=== PATIENT | female | born 1985 | race Caucasian/White ===

== ENCOUNTER 2019-02-26 22:58 | Inpatient (IN) | payer OTHER ==
[2019-02-26] MEDS: Lactated Ringer's 1,000 ML IV SCH (23:30)
[2019-02-26] MEDS ORDERED: Butorphanol Tartrate 1 MG/ML VIAL SLOW IVP PRN (23:38)
[2019-02-26] MEDS ORDERED: Ondansetron PF 4 MG/2 ML Vial IVP PRN (23:38)
[2019-02-26] MEDS ORDERED: hydrALAZINE 20 MG/ML VIAL SLOW IVP PRN (23:38)
[2019-02-26] MEDS ORDERED: Acetaminophen 500 MG TAB PO PRN (23:38)
[2019-02-26] MEDS ORDERED: Promethazine HCl 25 MG/ML VIAL IM PRN (23:38)
[2019-02-26] MEDS: Vancomycin HCl 1 GM in Premix Bag 1 BAG IVPB SCH (23:40)
--- NOTE | 2019-02-26 23:45 | PDOC.LDHP ---
Labor and Delivery H&P Chief complaint: contractions HPI: Multip here with 2 hours of increasing contractions. No LOF. Good movement. H/O fast labors with prior pregnancies. Was 4cm in the office earlier today. Current gestational age (weeks): 41 Due date: 02/16/19 Dating criteria: last menstrual period, first trimester ultrasound Grav: 4 Para: 3 OB History Details: Late transfer of care to [facility]. No complications. Rh negative status - given Rhogam at 28 weeks. Current complications: other (Post-dates) Abnormal US findings: No Current medications: pre-nitza vitamins Previous surgical history: none Allergies/Adverse Reactions: Allergies Allergy/AdvReac Type Severity Reaction Status Date / Time Penicillins Allergy Verified 02/26/19 23:36 Social history: none - Physical Exam Vital signs reviewed and normal: yes General: NAD, resting, breathing through contractions Heart: RRR Lungs: CTAB Abdomen: gravid Extremeties: no edema FHT: category 1 [place] contractions every: 8 minutes - Vaginal Exam cm dilated: 7 Effacement: 90% Station: -1 - OB Labs Blood type: O RH: negative Antibody Screen: negative HIV: negative RPR: negative HEPSAg: negative 1 hour GCT: negative GBS: positive Urine drug screen: not done Rubella: immune - Assessment L&D Assessment: term patient in labor - Plan Plan: admit to L&D, GBS antibiotic prophylaxis (Vancomycin given penicillin allergy), informed consent obtained
[2019-02-26 23:51] VITALS: BMI 29.9
[2019-02-27 00:10] LABS: Hemoglobin 11.2 g/dL (12.0-16.0); Mean Corpuscular HGB CONC 34.8 g/dL (32.0-36.0); Mean Corpuscular Hemoglobin 30.2 pg (27.0-31.0); Mean Corpuscular Volume 86.5 fL (78.0-98.0); Mean Platelet Volume 7.5 fL (7.4-10.4); Platelet Count 194 thou/uL (130-400); RBC Distribution Width 12.8 % (11.5-14.5); Red Blood Cell (RBC) Count 3.73 mill/uL (4.20-5.40); White Blood Cell (WBC) Count 7.7 thou/uL (4.8-10.8)
[2019-02-27 00:49] LABS: Syphilis Antibody Nonreactive (Nonreactive); Syphilis Antibody Index 0.05 S/CO (<1.00 Non-Reactive)
[2019-02-27 01:05] LABS: HBSAg Index 0.26 S/CO (0-0.99); Hep B Surf Ag Non-Reactive S/CO (NonReactive)
[2019-02-27] MEDS ORDERED: Lidocaine 1% (PF) 30 ML VIAL ONE (10:12)
[2019-02-27] MEDS ORDERED: NS / Oxytocin 40 units/1000ml 1,000 ML ONE ×2 (10:12→18:46)
[2019-02-27] MEDS: Vancomycin HCl 1 GM in Premix Bag 1 BAG IVPB SCH (11:41)
[2019-02-27] MEDS: Lactated Ringer's 1,000 ML IV SCH (11:41)
--- NOTE | 2019-02-27 12:42 | PDOC.EVN ---
Event Note - Event Note Event Note: Little progress overnight. Advanced cervical dilation at 41+ weeks. /. CTX only every 10-12 minutes. AROM with clear fluid. Category I strip following AROM. Hopefully that will move labor along. Getting vancomycin for GBS with PCN allergy. Continue expectant management. May need to augment with pitocin if no increase in CTX after AROM.
[2019-02-27] MEDS ORDERED: Fentanyl 4 mcg/Bup 0.1% Cadd 100 ML ONE (13:21)
[2019-02-27] MEDS ORDERED: Fentanyl 100 MCG/2 ML VIAL ONE (13:36)
[2019-02-27] MEDS ORDERED: Naloxone HCl 0.4 mg/ml Vial IVP PRN ×2 (13:58)
[2019-02-27] MEDS ORDERED: diphenhydrAMINE 50 MG/ML VIAL IVP PRN (13:58)
[2019-02-27] MEDS ORDERED: Promethazine HCl 25 MG/ML VIAL IM PRN (13:58)
[2019-02-27] MEDS ORDERED: Acetaminophen 325 MG TAB PO PRN (13:58)
[2019-02-27] MEDS ORDERED: Ondansetron PF 4 MG/2 ML Vial IVP PRN (13:58)
[2019-02-27] MEDS ORDERED: Lactated Ringer's 500 ML IV PRN (13:58)
[2019-02-27] MEDS ORDERED: ePHEDrine/0.9% NaCl/PF SYRINGE 50 mg/10 ml SLOW IVP PRN (13:58)
[2019-02-27] MEDS ORDERED: Fentanyl 4 mcg/Bupivacaine 0.1% Cassette 100 ML EPIDURAL SCH (14:00)
[2019-02-27] MEDS ORDERED: Communication Order-Pharmacy FS SCH (14:00)
--- NOTE | 2019-02-27 15:50 | PDOC.OPDEL ---
OB Operative/Delivery Note Delivery Dr/Surgeon: Bertram Pre-Delivery Diagnosis: active labor Procedure/Post Delivery Dx: spontaneous vaginal delivery Weeks gestation: 41 Anesthesia: epidural - Findings A Sex: female - 1 min: 9 - 5 min: 9 - Additional Findings/Plan Placenta delivered: spontaneous Repaired Obstetrical Laceration: 1st degree (Repaired with 2.0 vicryl suture in standard running fashion. Excellent hemostasis.) Post delivery plan: routine recovery
[2019-02-27] MEDS ORDERED: Benzocaine-Menthol 82.5 ML CAN TOP PRN (20:27)
[2019-02-27] MEDS ORDERED: hydrALAZINE 20 MG/ML VIAL SLOW IVP PRN (20:27)
[2019-02-27] MEDS ORDERED: NS / Oxytocin 40 units/1000ml 1,000 ML IV SCH (20:27)
[2019-02-27] MEDS ORDERED: Bisacodyl 10 MG SUPP PR PRN (20:27)
[2019-02-27] MEDS ORDERED: Milk Of Magnesia 30 ML UDCUP PO PRN (20:27)
[2019-02-27] MEDS ORDERED: FLU VACC QS2019-20(6MOS UP)/PF 60 MCG/0.5 ML SYRINGE IM ONE (21:00)
[2019-02-27] MEDS ORDERED: Sodium Chloride 0.9% 10 ML ONE (21:02)
[2019-02-27] MEDS: Docusate Calcium (SURFAK) 240 MG CAP PO SCH (21:15)
[2019-02-27] MEDS: Ibuprofen 800 MG TAB PO SCH (21:15)
[2019-02-27] MEDS: HYDROcodone/Acetaminophen 5/325 mg Tablet PO PRN (23:18)
[2019-02-28] MEDS: HYDROcodone/Acetaminophen 5/325 mg Tablet PO PRN ×4 (03:21→20:23)
[2019-02-28] MEDS: Ibuprofen 800 MG TAB PO SCH ×3 (05:52→21:39)
[2019-02-28] MEDS ORDERED: Adacel (T-DAP) 0.5 ML SYRINGE IM ONE (09:00)
[2019-02-28] MEDS: Ferrous Sulfate 325 MG TAB PO SCH ×2 (09:44→18:36)
[2019-02-28] MEDS: Docusate Calcium (SURFAK) 240 MG CAP PO SCH ×2 (09:53→21:39)
[2019-03-01] MEDS: HYDROcodone/Acetaminophen 5/325 mg Tablet PO PRN ×2 (00:38→10:58)
[2019-03-01] MEDS: Ibuprofen 800 MG TAB PO SCH (06:15)
[2019-03-01 08:03] VITALS: BP 97/61; TEMP 98.2
[2019-03-01] MEDS: Ferrous Sulfate 325 MG TAB PO SCH (08:22)
[2019-03-01] MEDS: Docusate Calcium (SURFAK) 240 MG CAP PO SCH (08:22)
--- NOTE | 2019-03-01 10:17 | PDOC.PP ---
Post Progress Note Post Day #: 1 Subjective: Doing well. Still quite tired from labor. Wants to stay another day. PO intake tolerated: yes Flatus: yes Ambulation: yes Vital Signs (12 hours) Temp Pulse Resp BP Pulse Ox 03/01/19 07:20 98.2 F 78 12 97/61 97 Weight Weight 169 lb - Physical Examination General: NAD Cardiovascular: no m/r/g, RRR Respiratory: clear to auscultation bilaterally, non-labored breathing Abdominal: + bowel sounds, lochia, no distention, appropriately TTP Result Diagrams: 02/26/19 23:57 Additional Labs: Post Labs Blood Type O NEGATIVE 02/26/19 23:57 Hep Bs Antigen Non-Reactive S/CO (NonReactive) 02/26/19 23:57 (1) Vaginal delivery Code(s): O80 - ENCOUNTER FOR FULL-TERM UNCOMPLICATED DELIVERY Status: Acute - Assessment/Plan Routine care Work on Rest Home tomorrow.
--- NOTE | 2019-03-01 10:18 | PDOC.PP ---
Post Progress Note Post Day #: 2 Subjective: Doing well. Slept last night. Ready to go home. Wants flu shot prior to D/C. PO intake tolerated: yes Flatus: yes Ambulation: yes Vital Signs (12 hours) Temp Pulse Resp BP Pulse Ox 03/01/19 07:20 98.2 F 78 12 97/61 97 Weight Weight 169 lb - Physical Examination General: NAD Cardiovascular: no m/r/g, RRR Respiratory: clear to auscultation bilaterally, non-labored breathing Abdominal: + bowel sounds, lochia, no distention, appropriately TTP Result Diagrams: 02/26/19 23:57 Additional Labs: Post Labs Blood Type O NEGATIVE 02/26/19 23:57 Hep Bs Antigen Non-Reactive S/CO (NonReactive) 02/26/19 23:57 (1) Vaginal delivery Code(s): O80 - ENCOUNTER FOR FULL-TERM UNCOMPLICATED DELIVERY Status: Acute - Assessment/Plan Routine care D/C home F/U in 6 weeks
[2019-03-01] MEDS ORDERED: FLU VACC QS2019-20(6MOS UP)/PF 60 MCG/0.5 ML SYRINGE IM ONE (12:00)
== END 2019-03-01 12:00 | disposition home or self-care (01) | DRG 807 ==
LOC: L&D/OP 22:58 → L&D 23:39 → 3SW 02-27 20:31
PROVIDERS: ADMIT Family Medicine; ATTEND Family Medicine
PROC: 10907ZC Drainage of Amniotic Fluid, Therapeutic from Products of Conception, Via Natural or Artificial Opening (ICD-10-PCS; principal; 2019-02-26)
PROC: 10E0XZZ Delivery of Products of Conception, External Approach (ICD-10-PCS; 2019-02-26)
PROC: 0HQ9XZZ Repair Perineum Skin, External Approach (ICD-10-PCS; 2019-02-26)
DX: O48.0 Post-term pregnancy (principal); Z37.0 Single live birth; Z3A.41 41 weeks gestation of pregnancy; O99.824 Streptococcus B carrier state complicating childbirth; O70.0 First degree perineal laceration during delivery
CPT/HCPCS: 85027; 86780; 86850; 86870; 86900; 86901; 87340; 90471; 90686; G0008; J2001; J3010; J3370